=== PATIENT | female | born 1975 | race Caucasian/White ===

== ENCOUNTER 2017-12-01 10:48 | Emergency (ER) | payer MEDICAID ==
[~2017-12-01] VITALS: Ht 162.6 cm; Wt 54.4 kg
[2017-12-01 10:57] VITALS: BP 118/68
== END 2017-12-01 11:19 | disposition home or self-care (01) ==
LOC: ER 10:50
DX: M54.5 Low back pain (principal)
CPT/HCPCS: A4606; Z7610

== ENCOUNTER 2020-08-02 12:49 | Emergency (ER) | payer MEDICAID ==
[~2020-08-02] VITALS: Ht 165.1 cm; Wt 65.8 kg
[2020-08-02 12:49] VITALS: BP 145/76
[2020-08-02] MEDS ORDERED: IBUPROFEN 600 MG TABLET PO ONE (14:00)
[2020-08-02] MEDS ORDERED: IBUPROFEN 600 MG TABLET ONE (14:17)
--- NOTE | 2020-08-06 09:02 | NUR ---
CALLED,INFORMED OF (+) RESULT, SHE SAID THAT SHE TESTED (+) [facility]
== END 2020-08-02 14:31 | disposition home or self-care (01) ==
LOC: ER 12:58
DX: U07.1 COVID-19 (principal); R03.0 Elevated blood-pressure reading, without diagnosis of hypertension
CPT/HCPCS: 99283; C9803; U0003